=== PATIENT | female | born 1940 | race Caucasian/White ===

== ENCOUNTER 2020-05-14 20:05 | Inpatient (IN) | payer OTHER, SELFPAY ==
[~2020-05-14] VITALS: Ht 165.1 cm; Wt 89.4 kg
[~2020-05-14 20:05] MED LIST: ACT5 PO; AMLO2.5T2 PO; ASPI-1047 PO; DULO60CA41 PO; FLUT1DIS3 INH; LEVA15HF5 INH; LEVO75TA7 PO; LEVO88TA5 PO; LORA-258 PO; MIRA25TA PO; MUCINEX; NITR0.4T47 SL; SERT-131 PO; SIMV-46 PO; VALS1TAB75 PO; [UNRECOGNIZED DRUG - OTHER]
--- NOTE | 2020-05-14 20:05 | NUR ---
EKG performed at BS by myself. Physician given copy of EKG for review.
[2020-05-14 20:19] VITALS: BP_SYST 141
--- NOTE | 2020-05-14 20:19 | NUR ---
Pt BIB daughter (Haleigh Chou) from home with c/o constant sharp sub sternal chest pain with numbness to neck and LUE since 1800 tonight. Pt states that C/P is exacerbated with respirations. VSS on conveyor monitor.
--- NOTE | 2020-05-14 20:19 | NUR ---
Placed in room 02 . Placed on engine monitor, blood pressure machine and pulse oximeter. To gown for exam. Side rails up. Report given to NED Kraus
--- NOTE | 2020-05-14 20:23 | NUR ---
ER Dr. Porras at bedside examining patient.
--- NOTE | 2020-05-14 20:43 | NUR ---
NTG 0.4 mg given SL for c/o C/P 6/10. B/P 133/55, P 91, SPO2 95% on O2 at 2 LPM/NC.
[2020-05-14] MEDS ORDERED: NITROGLYCERIN 0.4 MG TAB.SUBL SL ONE (20:45)
[2020-05-14] MEDS ORDERED: ASPIRIN 325 MG TABLET PO ONE (20:45)
--- NOTE | 2020-05-14 20:50 | NUR ---
NTG 0.4 mg given SL for c/o C/P /10. B/P 110/52, P 90, SPO2 96% on O2 at 2 LPM/NC.
--- NOTE | 2020-05-14 20:55 | NUR ---
NTG 0.4 mg given SL for c/o C/P 07/25. B/P 109/56, P 89, SPO2 96% on O2 at 2 LPM/NC.
--- NOTE | 2020-05-14 21:00 | NUR ---
# 20 gauge angiocath placed to LFA. Use of asceptic technique. Opsite placed over site. Blood return noted. Blood for lab drawn from site. Flushed with 10 cc of normal saline. No evidence of infiltration noted. Patient tolerated well.
--- NOTE | 2020-05-14 21:14 | NUR ---
Specimen for COVID 19 Antigen Juliann collected from right nare and sent to lab.
[2020-05-14] MEDS ORDERED: PRAV20TA PO (21:17)
[2020-05-14] MEDS ORDERED: CHOL2000 PO (21:17)
[2020-05-14] MEDS ORDERED: ALBU8.5H8 INH (21:17)
[2020-05-14] MEDS ORDERED: AMLO5TAB4 PO (21:17)
[2020-05-14] MEDS ORDERED: OLME1TAB16 PO (21:17)
[2020-05-14] MEDS ORDERED: TEMA15CA5 PO (21:17)
[2020-05-14] MEDS ORDERED: BETA1TAB20 PO (21:17)
[2020-05-14] MEDS ORDERED: AZEL137S7 NS (21:17)
[2020-05-14] MEDS ORDERED: MIRT30TA PO (21:17)
[2020-05-14 21:21] LABS: BASOPHILS # (AUTO) 0.1 K/uL (0.0-0.2); BASOPHILS % (AUTO) 1.1 % (0.0-2.0); EOSINOPHILS # (AUTO) 0.3 K/uL (0.0-0.4); EOSINOPHILS % (AUTO) 3.8 % (0.0-4.0); HEMATOCRIT 23.3 % (36-48); HEMOGLOBIN 8.1 g/dL (12.0-16.0); LYMPHOCYTES % (AUTO) 22.7 % (20.5-51.5); MEAN CORPUSCULAR HEMOGLOBIN 35 pg (27-31); MEAN CORPUSCULAR HGB CONC 35 % (32-36); MEAN CORPUSCULAR VOLUME 100 fL (79.0-98.0); MONOCYTES # (AUTO) 0.6 K/uL (0.0-1.0); MONOCYTES % (AUTO) 6.5 % (1.7-9.3); NEUTROPHILS # (AUTO) 5.8 K/uL (1.8-7.7); NEUTROPHILS % (AUTO) 65.9 % (40.0-70.0); PLATELET COUNT (AUTO) 365 K/uL (130-430); RED BLOOD CELL COUNT(AUTO) 2.33 MIL/uL (4.2-6.2); RED CELL DISTRIBUTION WIDTH 18.9 % (9.0-15.0); WHITE BLOOD COUNT (AUTO) 8.8 K/uL (4.8-10.8)
[2020-05-14 21:34] LABS: ANION GAP 7 (5-15); CALCIUM 8.7 mg/dL (8.4-11.0); CHLORIDE 100 mmol/L (98-107); CREATININE 1.97 mg/dL (0.55-1.30); GLUCOSE 130 mg/dL (70-99); POTASSIUM 4.6 mmol/L (3.5-5.1); SODIUM SERUM 134 mmol/L (136-145); UREA NITROGEN, BLOOD 39 mg/dL (8-21)
[2020-05-14 21:39] LABS: ALANINE AMINOTRANSFERASE 20 U/L (12-78); ALBUMIN 3.5 g/dL (3.4-4.8); ASPARTATE AMINOTRANSFERASE 22 U/L (10-37); TOTAL BILIRUBIN 0.3 mg/dL (0.0-1.0)
--- NOTE | 2020-05-14 22:08 | NUR ---
Medication reconciliation completed with information provided by Patient's Daughter. Any prior medication reconciliation on file was reviewed and corrected.
[2020-05-14] MEDS ORDERED: ACETAMINOPHEN 500 MG TABLET PO ONE (22:45)
--- NOTE | 2020-05-14 22:45 | NUR ---
Pt c/o H/A 01/22. Verbalizes improvement in C/P to 07/25. No needs verbalized at this time. Pts daughter remains at bedside. VSS.
[2020-05-14] MEDS ORDERED: LEVO100T PO (23:05)
--- NOTE | 2020-05-14 23:05 | NUR ---
Pt's daughter informs that pt takes two different doses of Levothyroxine on specific days. Med Reconciliation updated: Levothyroxine 88 Mcg PO ONLY on Tuesdays, , Saturdays, and Sundays. Levothyroxine 100 Mcg PO ONLY on Mondays, Wednesdays, and Fridays.
--- NOTE | 2020-05-14 23:24 | NUR ---
Daughter (Haleigh Chou) provides phone number: [phone].
--- NOTE | 2020-05-14 23:24 | NUR ---
Patient will be admitted to care of Dr. Cano. Admitted to Telemetry OBS unit. Bed placement pending Complete and up to date summary report printed. SBAR report to be given at bedside with opportunity for questions.
[2020-05-14] MEDS ORDERED: NACL 0.9% 1,000 ML IV ONE (23:30)
--- NOTE | 2020-05-14 23:37 | NUR ---
Pt resting quietly with eyes closed, even and non-labored respirations, VSS, NAD. Daughter at bedside.
--- NOTE | 2020-05-14 23:55 | NUR ---
Patient will be admitted to care of Dr. Cano. Admitted to Tele Obs unit. Will go to room 107-B. Belongings list completed. Complete and up to date summary report printed. SBAR report to be given at bedside with opportunity for questions.
--- NOTE | 2020-05-15 00:07 | NUR ---
ADMIT NOTE Received pt from ER to the floor with a diagnosis of chest pain. Admission process initiated. patient oriented to pain management, safety and call light-teach back done.
--- NOTE | 2020-05-15 00:10 | NUR ---
ROUNDS PATIENT IN BED, VITALS STABLE, NO CHEST PAIN AT THIS TIME. ADMISSION ASSESSMENT DONE AND DOCUEMNTED. ORIENTED TO HER ROOM , PHONE AND CALL LIGHT. PLAN OF CARE DISCUSSED AND PATIENT VERBALIZED UNDERSTANDING. SAFETY MEASURES IN PLACED. CALL LIGHT PLACED WITHIN REACH.
[2020-05-15 00:15] VITALS: BP_SYST 134
[2020-05-15] MEDS ORDERED: LORazepam 1 MG TABLET PO SCH (00:15)
[2020-05-15] MEDS ORDERED: LEVOTHYROXINE SODIUM 0.1 MG TABLET PO SCH (00:15)
[2020-05-15] MEDS ORDERED: LEVOTHYROXINE SODIUM 0.088 MG TABLET PO SCH (00:15)
[2020-05-15] MEDS ORDERED: NALOXONE HCL 0.4 MG/ML AMP (NARCAN) IVP PRN (00:15)
[2020-05-15] MEDS ORDERED: ALBUTEROL MDI INHALATION 8 GM INH INH PRN (00:15)
[2020-05-15] MEDS: ALBUTEROL SULFATE 0.083% 2.5 MG/3 ML VIAL.NEB INH SCH ×4 (00:30→19:40)
[2020-05-15 01:00] VITALS: BP_SYST 134
--- NOTE | 2020-05-15 01:23 | NUR ---
CONSULT REASON FOR CONSULT: CHEST PAIN PERSON I SPOKE WITH: KEVIN CONSULTING PHYSICIAN: DR. COLEMAN (DR. SANCHEZ LITHOGRAPHIC PRESS OPERATOR) SHAREPOINT ENGINEER PHONE NUMBER: [phone] ORDERING PHYSICIAN: [email or web address]
--- NOTE | 2020-05-15 02:15 | NUR ---
ROUNDS PATIENT ASLEEP, RESPIRATIONS EVEN AND UNLABORED, WILL CONTINUE TO MONITOR.
--- NOTE | 2020-05-15 04:10 | NUR ---
PATIENT RESTING: Patient resting quietly. No acute distress noted. Vital signs within normal range.
[2020-05-15 06:11] LABS: BASOPHILS # (AUTO) 0.1 K/uL (0.0-0.2); BASOPHILS % (AUTO) 0.9 % (0.0-2.0); EOSINOPHILS # (AUTO) 0.3 K/uL (0.0-0.4); EOSINOPHILS % (AUTO) 4.5 % (0.0-4.0); HEMOGLOBIN 7.2 g/dL (12.0-16.0); LYMPHOCYTES % (AUTO) 33.9 % (20.5-51.5); MEAN CORPUSCULAR HEMOGLOBIN 34 pg (27-31); MEAN CORPUSCULAR HGB CONC 34 % (32-36); MEAN CORPUSCULAR VOLUME 100 fL (79.0-98.0); MONOCYTES # (AUTO) 0.5 K/uL (0.0-1.0); MONOCYTES % (AUTO) 8.8 % (1.7-9.3); NEUTROPHILS # (AUTO) 3.1 K/uL (1.8-7.7); NEUTROPHILS % (AUTO) 51.9 % (40.0-70.0); PLATELET COUNT (AUTO) 311 K/uL (130-430); RED BLOOD CELL COUNT(AUTO) 2.11 MIL/uL (4.2-6.2); RED CELL DISTRIBUTION WIDTH 18.6 % (9.0-15.0)
--- NOTE | 2020-05-15 06:54 | NUR ---
CLOSING NOTES PATIENT AWAKE, NO COMPLAINTS AT THIS TIME, ALL NEEDS ATTENDED TO. SAFETY MEASURES MAINTAINED. CALL LIGHT PLACED WITHIN REACH.
[2020-05-15 07:29] LABS: HEMATOCRIT 21.1 % (36-48)
[2020-05-15] MEDS: BUDESONIDE 0.5 MG/2 ML AMPUL.NEB INH SCH ×2 (07:36→19:58)
[2020-05-15 08:00] VITALS: BP_SYST 110
[2020-05-15] MEDS ORDERED: ALBUTEROL SULFATE 0.083% 2.5 MG/3 ML VIAL.NEB INH PRN (08:00)
[2020-05-15 08:17] LABS: ANION GAP 7 (5-15); ASPARTATE AMINOTRANSFERASE 22 U/L (10-37); CALCIUM 8.7 mg/dL (8.4-11.0); CHLORIDE 100 mmol/L (98-107); CREATININE 1.97 mg/dL (0.55-1.30); GLUCOSE 130 mg/dL (70-99); POTASSIUM 4.6 mmol/L (3.5-5.1); SODIUM SERUM 134 mmol/L (136-145); TOTAL BILIRUBIN 0.3 mg/dL (0.0-1.0); UREA NITROGEN, BLOOD 39 mg/dL (8-21)
[2020-05-15 08:18] LABS: ALANINE AMINOTRANSFERASE 20 U/L (12-78); ALBUMIN 3.5 g/dL (3.4-4.8); CHOLESTEROL 110 mg/dL (<200); HDL CHOLESTEROL 34 mg/dL (>55); LDL CHOLESTEROL 59 mg/dL (<100); TRIGLYCERIDES 103 mg/dL (30-150)
[2020-05-15] MEDS: BETA-CAROTENE W-C & E/ZN/CU TABLET PO SCH (08:38)
[2020-05-15] MEDS: ASPIRIN 81 MG TABLET(ECOTRIN) PO SCH (08:39)
[2020-05-15] MEDS: amLODIPine BESYLATE 5 MG TABLET PO SCH ×2 (08:39→08:41)
[2020-05-15] MEDS ORDERED: FLUTICASONE 250 mCg/SALMETEROL 50 mCg DISKUS W.DEV INH SCH (09:00)
--- NOTE | 2020-05-15 10:20 | NUR ---
alert, oriented, appropriate, despite the fact of limited command of taiwanese. H & H down to 7.08/05 this morning, seen by dr personal care attendant , patient will get 2units prbc today when type and cross done. daughter zoey, made aware, and Consent signed by the patient
[2020-05-15 12:00] VITALS: BP_SYST 112
[2020-05-15 16:00] VITALS: BP_SYST 114
--- NOTE | 2020-05-15 18:24 | NUR ---
the first unit of PRBC completed uneventfully, the second followed right away, still alert, oriented, ambulatory to the bathroom, no complained of chest pain, denied palpations, all 3 troponin (-). Needs blood drawn after the second unit done, then call dr cosmetics and toiletries salesperson for discharge
[2020-05-15 20:00] VITALS: BP_SYST 105
--- NOTE | 2020-05-15 20:55 | NUR ---
BLOOD TRANSFUSION DONE 2ND UNIT PRBC DONE WITH STABLE VITAL SIGNS, PATIENT DENIES ANY BLOOD TRANSFUSION REACTIONS NOTED. CALLED LAB TO DRAW CBC AT 2200 ORDERED. WILL CONTINUE TO MONITOR.
[2020-05-15] MEDS ORDERED: MIRTAZAPINE 15 MG TABLET PO SCH (21:00)
[2020-05-15] MEDS ORDERED: TEMAZEPAM 15 MG CAPSULE PO SCH (21:00)
[2020-05-15] MEDS ORDERED: ATORVASTATIN 10 MG TABLET PO SCH (21:00)
[2020-05-15 22:50] LABS: BASOPHILS # (AUTO) 0.1 K/uL (0.0-0.2); EOSINOPHILS # (AUTO) 0.3 K/uL (0.0-0.4); EOSINOPHILS % (AUTO) 4.8 % (0.0-4.0); HEMATOCRIT 28.4 % (36-48); HEMOGLOBIN 9.6 g/dL (12.0-16.0); LYMPHOCYTES # (AUTO) 1.8 K/uL (1.0-5.5); LYMPHOCYTES % (AUTO) 24.7 % (20.5-51.5); MEAN CORPUSCULAR HEMOGLOBIN 33 pg (27-31); MEAN CORPUSCULAR HGB CONC 34 % (32-36); MEAN CORPUSCULAR VOLUME 98 fL (79.0-98.0); MONOCYTES # (AUTO) 0.6 K/uL (0.0-1.0); NEUTROPHILS # (AUTO) 4.4 K/uL (1.8-7.7); NEUTROPHILS % (AUTO) 61.5 % (40.0-70.0); PLATELET COUNT (AUTO) 324 K/uL (130-430); RED CELL DISTRIBUTION WIDTH 19.1 % (9.0-15.0); WHITE BLOOD COUNT (AUTO) 7.1 K/uL (4.8-10.8)
--- NOTE | 2020-05-15 23:25 | NUR ---
DR. SUERO PAGED AND TALKED TO DR. SUERO, INFORMED HIM OF PATIENT'S H/H-9.6, 28.4. NO NEW ORDER GIVEN, WILL BE MAKING ROUNDS IN A.M. AND WILL BE DISCHARGING PATIENT. WILL CONTINUE TO MONITOR.
[2020-05-16] VITALS: BP_SYST 100
[2020-05-16] MEDS: ALBUTEROL SULFATE 0.083% 2.5 MG/3 ML VIAL.NEB INH SCH ×3 (01:00→13:25)
--- NOTE | 2020-05-16 02:18 | NUR ---
ROUNDS PATIENT ASLEEP, RESPIRATIONS EVEN AND UNLABORED, WILL CONTINUE TO MONITOR.
--- NOTE | 2020-05-16 04:15 | NUR ---
PATIENT RESTING: Patient resting quietly. No acute distress noted. Vital signs within normal range.
--- NOTE | 2020-05-16 06:41 | NUR ---
CLOSING NOTES PATIENT AWAKE, VITALS STABLE, NO COMPLAINTS AT THIS TIME. ALL NEEDS ATTENDED TO. SAFETY AND FALL MEASURES MAINTAINED. CALL LIGHT PLACED WITHIN REACH.
[2020-05-16] MEDS: BUDESONIDE 0.5 MG/2 ML AMPUL.NEB INH SCH (07:35)
--- NOTE | 2020-05-16 07:37 | NUR ---
DR SUERO, HOSPITALIST BOAT PATCHER PLASTIC FOR DR BAPTISTE WAS PAGED, RE: CHANGE TO INPT STATUS. SPOKE TO NETTE.
--- NOTE | 2020-05-16 07:55 | NUR ---
INITIAL NOTE RECEIVED PT IN BED, NO S/S OF DISTRESS OR SOB NOTED, PT HAS NO C/O PAIN AT THIS TIME, PT IN STABLE CONDITION, PT AAOX4, VERBAL. IV CATHETER PATENT, NO SIGNS OF INFECTION OR INFILTRATION NOTED, SALINE LOCK. BED AT LOWEST POSITION, CALL LIGHT WITHIN REACH, WILL CONTINUE TO MONITOR PT FOR ANY CHANGES, FALL AND SAFETY PRECAUTIONS IN PLACE. PT DENIES CHEST PAIN AT THIS TIME.
[2020-05-16 08:30] VITALS: BP_SYST 125
[2020-05-16] MEDS: BETA-CAROTENE W-C & E/ZN/CU TABLET PO SCH (08:37)
[2020-05-16] MEDS: ASPIRIN 81 MG TABLET(ECOTRIN) PO SCH (08:37)
[2020-05-16] MEDS: amLODIPine BESYLATE 5 MG TABLET PO SCH ×2 (08:40→08:41)
--- NOTE | 2020-05-16 10:15 | NUR ---
ROUNDS PT IN BED, NO S/S OF DISTRESS OR SOB NOTED, PT HAS NO C/O PAIN AT THIS TIME, PT IN STABLE CONDITION, PT RESTING COMFORTABLY, WILL CONTINUE TO MONITOR PT FOR ANY CHANGES.
[2020-05-16 11:38] VITALS: BP_SYST 141
--- NOTE | 2020-05-16 12:05 | NUR ---
ROUNDS PT IN BED, NO S/S OF DISTRESS OR SOB NOTED, PT HAS NO C/O PAIN AT THIS TIME, PT IN STABLE CONDITION, PT RESTING COMFORTABLY WHILE TALKING ON THE PHONE, WILL CONTINUE TO MONITOR PT FOR ANY CHANGES.
[2020-05-16 14:19] VITALS: BP_SYST 124
[2020-05-16 15:15] VITALS: BP_SYST 110
--- NOTE | 2020-05-16 15:54 | NUR ---
D/C Patient Patient given medication reconciliation form and D/C instructions. Exit Care provided. Patient verbalized understanding. MD discussed with patient the results and treatment provided. Ambulatory with assist for discharge to home. Patient in stable condition, ID band removed. IV catheter removed, intact and dressing applied, no active bleeding. Patient educated on pain management. All belongings sent with patient.
--- NOTE | 2020-05-21 13:50 | NUR ---
Discharge Follow Up Call: TRANSIT MECHANIC phoned pt @ [phone] but speaks Lao only. TRANSIT MECHANIC phoned dtr Haleigh who stated she is not available to speak at the moment, but stated her mom is "okay" and they do no have any questions/concerns about the discharge instructions. No further SS call needed at this time.
== END 2020-05-16 15:50 | disposition home or self-care (01) | DRG 206 ==
LOC: SED 20:05 → STU 23:21 → OBSVTOIN 05-16 07:38
PROVIDERS: ADMIT Internal Medicine Hospice and Palliative Medicine; ATTEND Internal Medicine Hospice and Palliative Medicine
PROC: 30233N1 Transfusion of Nonautologous Red Blood Cells into Peripheral Vein, Percutaneous Approach (ICD-10-PCS; principal; 2020-05-16)
DX: M94.0 Chondrocostal junction syndrome [Tietze] (principal); D46.9 Myelodysplastic syndrome, unspecified; E03.9 Hypothyroidism, unspecified; E78.5 Hyperlipidemia, unspecified; I10 Essential (primary) hypertension; I45.10 Unspecified right bundle-branch block; N19 Unspecified kidney failure; Z20.828 Contact with and (suspected) exposure to other viral communicable diseases
CPT/HCPCS: 36415; 36430; 71045; 80053; 80061; 84484; 85025; 86886; 86900; 86901; 86920; 93005; 93306; 94640; 94760; 99285; G0378; J7030; J7050; J7613; J7626; P9021

== ENCOUNTER 2021-07-30 14:09 | Observation (INO) | payer OTHER, SELFPAY ==
[~2021-07-30] VITALS: Ht 167.6 cm; Wt 81.4 kg
[~2021-07-30 14:09] MED LIST changes: -ACT5 PO; +ALBU8.5H8 INH; +AMLO5TAB4 PO; +AZEL137S7 NS; +BETA1TAB20 PO; +CHOL2000 PO; -DULO60CA41 PO; -LEVA15HF5 INH; +LEVO100T PO; -LEVO75TA7 PO; +MIRT-115 PO; -MUCINEX; -NITR0.4T47 SL; +OLME1TAB16 PO; +PRAV20TA PO; -SERT-131 PO; -SIMV-46 PO; +TEMA15CA5 PO; -VALS1TAB75 PO; -[UNRECOGNIZED DRUG - OTHER]
[2021-07-30 14:10] VITALS: BP_SYST 180
--- NOTE | 2021-07-30 14:15 | NUR ---
TRIAGED AND HOLDING IN [facility].
[2021-07-30 15:25] LABS: BASOPHILS # (AUTO) 0.1 K/uL (0.0-0.2); BASOPHILS % (AUTO) 0.6 % (0.0-2.0); EOSINOPHILS # (AUTO) 0.3 K/uL (0.0-0.4); EOSINOPHILS % (AUTO) 2.6 % (0.0-4.0); HEMATOCRIT 30.3 % (36-48); HEMOGLOBIN 10.4 g/dL (12.0-16.0); LYMPHOCYTES # (AUTO) 3.4 K/uL (1.0-5.5); LYMPHOCYTES % (AUTO) 33.8 % (20.5-51.5); MEAN CORPUSCULAR HEMOGLOBIN 33 pg (27-31); MEAN CORPUSCULAR HGB CONC 34 % (32-36); MEAN CORPUSCULAR VOLUME 96 fL (79.0-98.0); MONOCYTES # (AUTO) 0.7 K/uL (0.0-1.0); MONOCYTES % (AUTO) 6.4 % (1.7-9.3); NEUTROPHILS # (AUTO) 5.7 K/uL (1.8-7.7); NEUTROPHILS % (AUTO) 56.6 % (40.0-70.0); PLATELET COUNT (AUTO) 562 K/uL (130-430); RED BLOOD CELL COUNT(AUTO) 3.17 MIL/uL (4.2-6.2); RED CELL DISTRIBUTION WIDTH 20.5 % (9.0-15.0); WHITE BLOOD COUNT (AUTO) 10.1 K/uL (4.8-10.8)
[2021-07-30 15:30] LABS: ANION GAP 7 (5-15); CALCIUM 8.7 mg/dL (8.4-11.0); CHLORIDE 92 mmol/L (98-107); CREATININE 1.54 mg/dL (0.55-1.30); GLUCOSE 129 mg/dL (70-99); POTASSIUM 4.8 mmol/L (3.5-5.1); SODIUM SERUM 126 mmol/L (136-145); UREA NITROGEN, BLOOD 25 mg/dL (8-21)
[2021-07-30 15:39] LABS: ALANINE AMINOTRANSFERASE 21 U/L (12-78); ALBUMIN 3.4 g/dL (3.4-4.8); ASPARTATE AMINOTRANSFERASE 12 U/L (10-37); TOTAL BILIRUBIN 0.2 mg/dL (0.0-1.0)
--- NOTE | 2021-07-30 17:53 | NUR ---
BROUGHT IN TO [facility] BED #2 AND REPORT GIVEN TO ALIZA
--- NOTE | 2021-07-30 18:00 | NUR ---
PT BIBA FOR C/O SUBSTERNAL CHEST PAIN RADIATING TO LEFT ARM. PT REPORTS TAKING NITRO X 2 AT HOME PRIOR TO COMING. EMS GAVE 1 DOSE NITRO EN ROUTE. UPON ARRIVAL PT DENIES ANY CHEST PAIN BUT STATES SHE HAS A ASIF. PT IS AMBULATORY, AAOX4, V/S STABLE
--- NOTE | 2021-07-30 18:04 | NUR ---
PT AMBULATES WITH STEADY GAIT TO BATHROOM TO PROVIDE URINE SAMPLE
[2021-07-30 18:33] LABS: BILIRUBIN,URINE NEGATIVE (NEGATIVE); BLOOD, URINE NEGATIVE (NEGATIVE); CLARITY/URINE CLEAR (CLEAR); COLOR,URINE YELLOW (YELLOW); GLUCOSE,URINE NEGATIVE (NEGATIVE); KETONES,URINE NEGATIVE (NEGATIVE); LEUKOCYTE ESTERASE ,URINE NEGATIVE (NEGATIVE); NITRITE, URINE NEGATIVE (NEGATIVE); PROTEIN URINE NEGATIVE (NEGATIVE); UROBILINOGEN,URINE 0.2 (0.2-1.0)
--- NOTE | 2021-07-30 18:36 | NUR ---
PORTABLE X-RAY AT THE BEDSIDE
[2021-07-30] MEDS ORDERED: ASPIRIN 325 MG TABLET PO ONE (20:15)
--- NOTE | 2021-07-30 21:06 | NUR ---
Pts. family upset regarding timeliness of care, per daughter ASA refused, stated already received ASA by EMS, Dr. Sparks outside to speak with pts. son and daughter and review POC
[2021-07-30] MEDS ORDERED: ACETAMINOPHEN/CODEINE 300 MG-30 MG TABLET PO ONE (22:15)
--- NOTE | 2021-07-30 22:35 | NUR ---
Tylenol with codeine 3 pulled by Charge Nurse. Administered by registry staff nurse.
--- NOTE | 2021-07-31 00:42 | NUR ---
ADMISSION NOTE Received patient from ER via gurney. Patient admitted with diagnosis of CHEST PAIN. Patient is awake, alert, oriented X 4. Patient oriented to hospital room, call light, toileting, pain management and safety-teach back done. Patient informed that their room number is 100A. Personal belongings checked and Belongings List documented. Call light within reach.
[2021-07-31 01:09] VITALS: BP_SYST 144
--- NOTE | 2021-07-31 03:25 | NUR ---
Pt c/o chest pain, paged Dr Zacarias, ordered nitroglycerin
[2021-07-31] MEDS ORDERED: ACETAMINOPHEN 325 MG TABLET PO PRN ×3 (03:30→09:15)
[2021-07-31] MEDS: NITROGLYCERIN 0.4 MG TAB.SUBL SL PRN ×3 (03:33→03:49)
[2021-07-31] MEDS ORDERED: MORPHINE 2 MG/ML INJ. SYRINGE IVP PRN (04:05)
--- NOTE | 2021-07-31 04:36 | NUR ---
Consultation Paged Reason for Consultation: Chest Was consult called: Y Person who was notified: Dr. Zacarias through phone call by NED Dumont Consulting Physician: Dr. Zacarias Ordering Physician: Rubén Kaufman
[2021-07-31] MEDS ORDERED: ONDANSETRON HCL 4 MG/2 ML VIAL IVP PRN (07:45)
[2021-07-31] MEDS ORDERED: LEVOTHYROXINE SODIUM 0.1 MG TABLET PO SCH (07:45)
[2021-07-31] MEDS ORDERED: LEVOTHYROXINE SODIUM 0.088 MG TABLET PO SCH (07:45)
[2021-07-31] MEDS ORDERED: HYDROcodone/ACETAMIN 10-325 MG TAB PO PRN (07:45)
[2021-07-31] MEDS ORDERED: ALBUTEROL MDI INHALATION 8 GM INH INH PRN (07:45)
[2021-07-31] MEDS ORDERED: HYDROcodone/ACETAMIN 5-325 MG TAB (NORCO/ VICODIN) PO PRN (07:45)
[2021-07-31] MEDS ORDERED: NALOXONE HCL 0.4 MG/ML AMP (NARCAN) IVP PRN ×2 (07:45)
[2021-07-31] MEDS ORDERED: D5/0.45 NS 1,000 ML IV SCH (07:45)
[2021-07-31] MEDS ORDERED: LORazepam 2 MG/ML VIAL IVP PRN (07:45)
[2021-07-31] MEDS ORDERED: LORazepam 1 MG TABLET PO SCH (07:45)
[2021-07-31 08:00] VITALS: BP_SYST 162
--- NOTE | 2021-07-31 08:00 | NUR ---
PATIENT IN BED, NO S/S OF DISTRESS, IV IN LEFT AC 20 INTACT PATENT, LEBANESE SPEAKING WITH SOME URDU, USING BLUE PHONE TO TRANSLATE, A/OX4, SAFETY MEASURES IN PLACE, BED IN LOWEST LOCKED POSITION, CALL LIGHT WITHIN REACH, WILL CONTINUE TO MONITOR.
[2021-07-31] MEDS ORDERED: AZELASTINE HCL NS SCH (09:00)
[2021-07-31] MEDS ORDERED: PRAVASTATIN SODIUM 20 MG TABLET (PRAVACHOL) PO SCH (09:00)
[2021-07-31] MEDS ORDERED: ASPIRIN 81 MG TABLET(ECOTRIN) PO SCH (09:00)
[2021-07-31] MEDS ORDERED: NON-FORMULARY MEDICATION (Mirabegron (Myrbetriq) 25 MG) PO SCH (09:00)
[2021-07-31] MEDS ORDERED: amLODIPine BESYLATE 5 MG TABLET PO SCH ×2 (09:00)
[2021-07-31] MEDS ORDERED: FLUTICASONE 250 mCg/SALMETEROL 50 mCg DISKUS W.DEV INH SCH (09:00)
[2021-07-31] MEDS ORDERED: BETA-CAROTENE W-C & E/ZN/CU TABLET PO SCH (09:00)
[2021-07-31] MEDS ORDERED: ALBUTEROL SULFATE 0.083% 2.5 MG/3 ML VIAL.NEB INH PRN (09:15)
--- NOTE | 2021-07-31 09:26 | NUR ---
PATIENT IN BED, STATED SHE HAS CHEST PAIN OF 4/10 RADIATING DOWN HER LEFT ARM AND STATES IT COMES AND GOES, PROVIDED MORPHINE 2M IVP SINCE PATIENT ALREADY RECEIVED NITRO TABLETS THIS MORNING ON EMERGENCY ROOM ORDERLY, PATIENT STATES HER PAIN HAS NOW IMPROVED
[2021-07-31] MEDS ORDERED: OLME20TA13 PO ×2 (10:00)
--- NOTE | 2021-07-31 10:24 | NUR ---
SPOKE WITH DR CAMPBELL AND DR BAPTISTE AT BEDSIDE, CONFIRMED THAT THEY BOTH CLEAR THE PATIENT FOR DISCHARGE AND DISCUSSED WHICH BLOOD PRESSURE MEDICATIONS SHE WILL BE ON AT HOME. ALL FAMILY AND PATIENT QUESTIONS ANSWERED, VOICED UNDERSTANDING.
[2021-07-31] MEDS ORDERED: OLME40TA12 PO (10:26)
[2021-07-31] MEDS ORDERED: ATORVASTATIN 10 MG TABLET PO ONE (10:30)
[2021-07-31 12:00] VITALS: BP_SYST 144
[2021-07-31 12:14] VITALS: BP_SYST 144
--- NOTE | 2021-07-31 12:55 | NUR ---
PATIENT DISCHARGED, A/OX4, SALVADOREAN AND SERBIAN SPEAKING, SERBIAN SPEAKING DAUGHTER JOSE AT BEDSIDE, DISCHARGE EDUCATION GIVEN TO PATIENT AND DAUGHTER, ANSWERED ALL QUESTIONS, NOTIFIED DR CAMPBELL AND OLIVA THAT PATIENT IS STILL EXPERIENCING SOME TIGHTNESS IN HER CHEST, DR BAPTISTE AND DR CAMPBELL STATE PATIENT IS CLEARED TO DISCHARGE DESPITE MILD CHEST PAIN, DISCHARGE PACKET PRINTED AND SIGNED AND IN THE CHART AND COPY WITH PATIENT, IV REMOVED, GAUZE PLACED, AND CATHETER INTACT UPON REMOVAL, WRIST BAND REMOVED, TELE BOX REMOVED AND PROVIDED TO NURSES STATION, TAKEN TO CAR IN WHEEL CHAIR, DAUGHTER DRIVING PATIENT, TOLERATED WELL.
[2021-07-31] MEDS ORDERED: NORMAL SALINE 5 ML DISP.SYRIN IVF SCH ×2 (14:00)
[2021-07-31 14:39] VITALS: BP_SYST 144
[2021-07-31] MEDS ORDERED: MIRTAZAPINE 15 MG TABLET PO SCH (21:00)
[2021-07-31] MEDS ORDERED: TEMAZEPAM 15 MG CAPSULE PO SCH (21:00)
[2021-08-01] MEDS ORDERED: ATORVASTATIN 10 MG TABLET PO SCH (09:00)
[2021-08-01] MEDS ORDERED: CHOLECALCIFEROL (VITAMIN D3) 2,000 UNIT TABLET PO SCH (09:00)
== END 2021-07-31 12:45 | disposition home or self-care (01) ==
LOC: SED 14:09 → STU 19:38 → INTOOBSV 19:38 → STU 07-31 00:17
PROVIDERS: ADMIT Internal Medicine Hospice and Palliative Medicine; ATTEND Internal Medicine Hospice and Palliative Medicine
DX: R07.89 Other chest pain (principal); Z20.822 Contact with and (suspected) exposure to COVID-19; I12.9 Hypertensive chronic kidney disease with stage 1 through stage 4 chronic kidney disease, or unspecified chronic kidney disease; N18.30 Chronic kidney disease, stage 3 unspecified; J44.9 Chronic obstructive pulmonary disease, unspecified; K21.9 Gastro-esophageal reflux disease without esophagitis; D46.9 Myelodysplastic syndrome, unspecified; M10.9 Gout, unspecified; E03.9 Hypothyroidism, unspecified; M13.0 Polyarthritis, unspecified; I45.10 Unspecified right bundle-branch block; Z96.653 Presence of artificial knee joint, bilateral; Z79.899 Other long term (current) drug therapy; Z90.710 Acquired absence of both cervix and uterus; Z87.891 Personal history of nicotine dependence
CPT/HCPCS: 36415 ×2; 71045; 80053; 81003; 83880; 84484 ×2; 85025; 87426; 93005; 93306; 96374; 99285; G0378; J2270